=== PATIENT | male | born 1985 | race Caucasian/White ===

== ENCOUNTER → 2017-01-07 | Outpatient (REF) | LOC: WSOH 12:14 | DX: Z11.1 Encounter for screening for respiratory tuberculosis (principal) ==

== ENCOUNTER → 2017-01-22 | Outpatient (REF) | LOC: WSOH 08:33 | DX: Z00.00 Encounter for general adult medical examination without abnormal findings (principal) ==

== ENCOUNTER → 2018-04-18 | Outpatient (CLI) | payer OTHER | LOC: COL.RAD 10:18 | DX: R51 Headache (principal) | CPT/HCPCS: A9585 ==